=== PATIENT | female | born 1945 | race Caucasian/White ===

== ENCOUNTER 2020-12-24 09:17 | Emergency (ER) | payer MEDICARE ==
[~2020-12-24] VITALS: Ht 162.6 cm; Wt 90.0 kg
--- NOTE | 2020-12-24 09:41 | NUR ---
Walks to rm 25 with cane unassisted, changing to gown. AIDET provided.
--- NOTE | 2020-12-24 10:22 | NUR ---
pt presents to ED with generalized joint pain for approx 3 weeks, pt denies travel/sick contacts, denies chest pain, denies sob. pt also notes bilateral foot swelling for last 3 days, bilateral pedal pulse 3+. all monitors in place, pt is afib rate 100-120, no ectopy, hx same. pt a&o, resps even and unlabored, nadn. call light in reach, blankets provided, awaiting MD and dispo.
[2020-12-24] MEDS ORDERED: ASPIRIN 81 MG TABLET CHEW PO ONE (11:00)
[2020-12-24] MEDS ORDERED: SODIUM CHLORIDE FLUSH 10ML SYR IVF ONE (11:00)
[2020-12-24] MEDS ORDERED: MORPHINE SULFATE 4 MG/ML, 1ML IVPush PRN (11:00)
[2020-12-24] MEDS ORDERED: KETOROLAC 30 MG/1 ML IV ONE (11:00)
[2020-12-24] MEDS ORDERED: KETOROLAC 30 MG/1 ML ONE (11:10)
[2020-12-24] MEDS ORDERED: ASPIRIN 81 MG TABLET CHEW ONE (11:11)
[2020-12-24] MEDS ORDERED: MORPHINE SULFATE 4 MG/ML, 1ML ONE (11:11)
--- NOTE | 2020-12-24 11:41 | NUR ---
PIV placed, pt medicated per emar, toleratd well. all monitors in place. 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 pt a&o, resps even and unlabored, nadn. pain level 7/10 at this time.
[2020-12-24 11:48] LABS: BASOPHILS % (AUTO) 0 % (0-1); EOSINOPHILS % (AUTO) 0 % (1-7); LYMPHOCYTES % (AUTO) 16 % (22-44); MEAN CORPUSCULAR HEMOGLOBIN 30.2 pg (27.0-34.8); MEAN CORPUSCULAR HGB CONC 33.2 g/dL (32.4-35.8); MEAN PLATELET VOLUME 7.1 fL (7.4-10.4); MONOCYTES % (AUTO) 6 % (2-9); NEUTROPHILS % (AUTO) 78 % (42-75); PLATELET COUNT 432 x10^3/uL (130-400); RED BLOOD COUNT 4.83 x10^6/uL (3.82-5.3); RED CELL DISTRIBUTION WIDTH 14.6 % (9.6-15.2)
[2020-12-24 12:13] LABS: ALANINE AMINOTRANSFERASE 32 U/L (12-78); ALBUMIN 3.6 g/dL (3.4-5.0); ANION GAP 6 mmol/L (5-15); CALCIUM 9.8 mg/dL (8.5-10.1); CHLORIDE 102 mmol/L (98-107); CREATININE 0.78 mg/dL (0.55-1.02)
[2020-12-24 12:17] LABS: ALKALINE PHOSPHATASE 128 U/L (45-117); BILIRUBIN,TOTAL 0.8 mg/dL (0.2-1.0); TOTAL PROTEIN 7.4 g/dL (6.4-8.2); TROPONIN I < 0.015 ng/mL (0.000-0.045)
[2020-12-24 12:31] LABS: HCT (SEDRATE) 43.9 % (34.6-47.8)
--- NOTE | 2020-12-24 13:56 | NUR ---
pt requesting discharge, dc orders received. awaiting paperwork from MD NAIDA notified pt requesting discharge.
--- NOTE | 2020-12-24 13:57 | NUR ---
notified pt takes JILLIAN garza instructed to hold aspirin ordered.
[2020-12-24 14:25] VITALS: BP 139/92
--- NOTE | 2020-12-24 14:32 | NUR ---
pt given dc instructions and script, educated regarding rx for celebrex, naprosyn, and percocet. pt signed consent for controlled substance rx. pt educated not to drive today, or when under influence of percocet. pt states "my pain is a hellof a lot better." pt declines additional pain medication dosing in ED. pt a&o, resps even and unlabored, able to get out of bed, dress self and ambulate steadily to bathroom without assistance. pt's to pick her up. all questions answered.
== END 2020-12-24 14:33 | disposition home or self-care (01) ==
LOC: ED 14:30
DX: M13.812 Other specified arthritis, left shoulder (principal); M13.811 Other specified arthritis, right shoulder; I10 Essential (primary) hypertension; I48.91 Unspecified atrial fibrillation; J45.909 Unspecified asthma, uncomplicated
CPT/HCPCS: 36415; 71045; 73030; 80053; 84484; 85025; 85651; 93005; 96374; 96375; 99285; J1885; J2270